=== PATIENT | female | born 1955 | race Caucasian/White ===

== ENCOUNTER → 2016-11-10 | Day surgery (SDC) | payer OTHER ==
[~2016-11-10] MED LIST: ACETAMINOPHEN 1000 MG/100 ML 100 ML IV ONE; BACITRACIN IM FOR SOLN 50,000 UNIT VIAL ONE; BUPIVACAINE/EPINEPHRINE 0.25% 50 ML VIAL ONE; GENTAMICIN SULFATE 80 MG/2 ML VIAL ONE; HYDROmorphone HCL PF 2 MG/ML VIAL ONE; KETOROLAC TROMETHAMINE 30 MG/ML (IVP) VIAL IV PUSH ONE; LACTATED RINGER'S 1000 ML INJ 1,000 ML ONE; LIDOCAINE 1%/EPINEPHrine 1:200,000 PF SOLN 30 ML VIAL ONE; MIDAZOLAM HCL 2 MG/2 ML VIAL ONE; NEOMYCIN/POLYMYXIN/BACITRACIN OINT 15 GM TUBE ONE; ONDANSETRON HCL 4 MG/2 ML VIAL IV PUSH ONE; PROPOFOL 200 MG/20 ML AMP IV ONE; SODIUM CHLORIDE 0.9% 20 ML VIAL ONE; ceFAZolin INJ 1,000 MG VIAL ONE; diphenhydrAMINE HCL 50 MG/ML VIAL ONE
--- NOTE | 2016-11-10 11:29 | TN ---
cc: MEDARDO APODACA M.D. DATE OF SURGERY 11/10/2016 PREOPERATIVE DIAGNOSIS Significant weight loss with resultant significant ptosis and slight macromastia and light lipodystrophy and excess skin in the arm area. PROCEDURE Reduction mastopexy bilateral, as well as bilateral liposuction brachioplasty. SURGEON Medardo Apodaca MD, [facility] ANESTHESIA LMA general ESTIMATED BLOOD LOSS Minimal COMPLICATIONS None DRAINS None PROCEDURE The patient was properly consented, marked and properly anesthetized. The masters on the breast were as follows, the NAC was set at 24-24-1/2 cm from the sternal notch, 42 mm areolar diameter and we utilized the center inferior pedicle technique that was set at approximately 8 cm. With this after the area was properly prepped and draped utilizing Betadine solution, I also performed a breast block of approximately 30 cc per breast of a combination of 1% lidocaine and epinephrine mixed with 0.25% Marcaine in a 2:1 ratio. We began the procedure, however, by approaching the arms where utilizing punctures wounds, I proceeded to tumescent 500 cc of normal saline in each arm for a grand total of 1000. 500 cc was liposuctioned out in the usual fashion utilizing Micro-A and a 4.57 mm meter cannula. I proceeded and performed a tailor tack technique to assess the excessive of skin that we actually achieved with this. This was properly marked. The skin was removed in its totality. Meticulous hemostasis was achieved and the wounds were closed in layers utilizing 2-0 Monocryl suture in the dermis and subcu. The contralateral side was approached in exactly the same manner. Attention was directed to the breast where utilizing a Jose's maneuver, I proceeded to perform the deepithelization of the breast pedicle leaving a 42 mm areolar diameter down to the base which was about 8 cm. The excessive of skin was removed medially and superolaterally and the wounds were closed at this point utilizing 2-0 Monocryl suture. The NAC was brought out then with the usual 5-1/2 cm from the base at 42 mm areolar diameter. I proceeded and secured this utilizing 2-0 Monocryl suture and 2-0 Quill around it. Dermabond was utilized to the skin. For dressings for the arms, I utilized 4x4s, Segun and Waqas. For the breast, 4x4s and tape as well as a comfortable snug brassiere. Good viability of the tissue was noted at the end of the case. The patient was awakened and extubated in the operating room, transferred back to the postanesthesia care unit in stable condition. There were no complications appreciated. The patient tolerated the procedure fairly well. MD TATE Alvarez/KIRILL /11:02 AM /11:18 AM MTDNitza
== END | disposition home or self-care (01) ==
LOC: ESDC 06:22
PROVIDERS: ATTEND Plastic Surgery
DX: Z41.1 Encounter for cosmetic surgery (principal); N64.81 Ptosis of breast; N62 Hypertrophy of breast
CPT/HCPCS: 00400; 00402; 15836; 15878; 19318; 88305; J0131; J0690; J1170; J1200; J1885; J2250; J2405; J3010; J7120; J1580

== ENCOUNTER → 2016-11-11 | Day surgery (SDC) | payer OTHER ==
[~2016-11-11] MED LIST changes: +APREPITANT 40 MG CAP ONE; +BACITRACIN IM FOR SOLN 50,000 UNIT VIAL IRRIGATION ONE; -BACITRACIN IM FOR SOLN 50,000 UNIT VIAL ONE; -BUPIVACAINE/EPINEPHRINE 0.25% 50 ML VIAL ONE; +GENTAMICIN SULFATE 80 MG/2 ML VIAL IRRIGATION ONE; -GENTAMICIN SULFATE 80 MG/2 ML VIAL ONE; -HYDROmorphone HCL PF 2 MG/ML VIAL ONE; -KETOROLAC TROMETHAMINE 30 MG/ML (IVP) VIAL IV PUSH ONE; +LACTATED RINGER'S 1000 ML INJ 1,000 ML IV ONE; -LIDOCAINE 1%/EPINEPHrine 1:200,000 PF SOLN 30 ML VIAL ONE; +MICROFIBRILLAR COLLAGEN HEMOSTAT 1 GM PKT ONE; +MORPHINE SULFATE 4 MG/ML INJ ONE; -NEOMYCIN/POLYMYXIN/BACITRACIN OINT 15 GM TUBE ONE; +ceFAZolin INJ 1,000 MG VIAL IRRIGATION ONE; -ceFAZolin INJ 1,000 MG VIAL ONE
--- NOTE | 2016-11-11 17:58 | TN ---
cc: MEDARDO APODACA M.D. DATE OF SURGERY: 11/11/2016. PREOPERATIVE DIAGNOSIS: Status post bilateral reduction mastopexy then developed on the right breast hematoma due to overactivity by the patient. OPERATIVE PROCEDURE PERFORMED: Drainage of right breast hematoma. SURGEON: Medardo Apodaca MD, FACS. ANESTHESIA: LMA general. COMPLICATIONS: None. FINDINGS: Active bleeding. DRAINS: One 10-mm Sameer-Vivar drain. DESCRIPTION OF THE PROCEDURE IN DETAIL: She was properly consented, marked properly and anesthetized and the skin was sterilized with Betadine solution and sterile draping applied. Removal of the suture material was done from all the incisions in the right breast, finding indeed a hematoma of approximately 400 mL. After this was properly drained, it was irrigated with copious warm antibiotic solution. We were unable to find an active bleeder and therefore a layer of Avitene was placed in the tissue and the wound was closed in the usual manner 2-0 Monocryl suture and 3-0 Monocryl suture for the areolar area. Before closing, a 10 mm Sameer-Vivar drain was brought and secured in place. Absorbent dressing was applied including Xeroform gauze, bacitracin ointment. The tissue was remained very viable. At the same time, no complication was appreciated. The patient tolerated the procedure well. At the same time, we did change the dressings on the brachioplasty the patient had the day before. The patient was awake and extubated in the operating room and transferred back to the post-anesthesia care unit in stable condition. There were no complications of the procedure. The patient tolerated the procedure fairly well. MD TATE Alvarez/DILLON /3:47 PM /5:46 PM GIDEON
== END | disposition home or self-care (01) ==
LOC: ESDC 12:07
PROVIDERS: ATTEND Plastic Surgery
DX: L76.22 Postprocedural hemorrhage of skin and subcutaneous tissue following other procedure (principal)
CPT/HCPCS: 00400; 10160; J0131; J0690; J1200; J1580; J2250; J2270; J2405; J3010; J7120; J8501